=== PATIENT | male | born 1980 ===

== ENCOUNTER 2018-06-06 09:16 | Emergency (ER) | payer SELFPAY ==
[2018-06-06 09:37] VITALS: BP 106/63; PULSE 82; RESP 16; TEMP 98.6; O2SAT 100
--- NOTE | 2018-06-06 09:51 | C.PDOC ---
History Of Present Illness Patient transferred from [facility] for psychiatric admission. Patient had attempted suicide by taking 30 tablets of Gabapentin 100 mg. Patient has history of anxiety and depression. All transfer forms reviewed and medical chart copies. Patient to be admitted to [facility] service Time Seen by Provider: 06/06/18 09:31 Chief Complaint (Nursing): Psychiatric Evaluation History Per: Patient History/Exam Limitations: no limitations Suicide/Self Injury Attempted (Context): Ingestion Involuntary Hold By: None Additional History Per: EMS, Prior Records Past Medical History Reviewed: Historical Data, Nursing Documentation, Vital Signs Vital Signs: Last Vital Signs Temp 98.6 F 06/06/18 09:31 Pulse 82 06/06/18 09:31 Resp 16 06/06/18 09:31 BP 106/63 06/06/18 09:31 Pulse Ox 100 06/06/18 09:31 - Medical History PMH: HIV (As per pt) Denies: Diabetes, Hepatitis, HTN, Seizures, Sexually Transmitted Disease Family History: States: No Known Family Hx - Social History Hx Alcohol Use: Yes Hx Substance Use: Yes - Immunization History Hx Tetanus Toxoid Vaccination: No Hx Influenza Vaccination: No Hx Pneumococcal Vaccination: No Review Of Systems Except As Marked, All Systems Reviewed And Found Negative. Psych: Positive for: Depression, Suicidal ideation Physical Exam - Physical Exam Appears: Non-toxic, No Acute Distress Neck: Normal ROM Chest: Symmetrical Respiratory: No Accessory Muscle Use, Other (No respiratory distress) Neurological/Psych: Oriented x3, Normal Speech Gait: Steady Additional Physical Exam Comments: Exam limited to inspection ED Course And Treatment O2 Sat by Pulse Oximetry: 100 (RA) Pulse Ox Interpretation: Normal Medical Decision Making Medical Decision Making: Initial Plan: Patient transferred for psychiatric admission, already accepted to service. Progress/Updates: Crisis to speak to patient. 10:43 Patient was to be admitted. He spoke to bog worker and refused admission. Discussed the risks and benefits of refusing treatment, patient is choosing to sign out AMA. AMA (admission): The patient declines admission, and wishes to leave the Emergency Department. This action is against my medical advice to the patient and the decision was made with informed refusal. The patient was told that admission is necessary and a full explanation of the rationale was given. The risks of leaving were explained to the patient and include, but are not limited to, worsening of known or currently unknown conditions, permanent disability and from undiagnosed or untreated conditions The patient has the capacity to make this informed decision and understands the clinical situation and my explanation of the risks of leaving. The patient voluntarily accepts these risks, and a signed AMA form documenting our conversation was obtained. The patient was given the opportunity to ask questions and reconsider. The patient was encouraged to return to the Emergency Department at any time for further care. 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 - Scribe Statement The provider has reviewed the documentation as recorded by the Cale Kaplan All medical record entries made by the Benitaibomid were at my direction and personally dictated by me. I have reviewed the chart and agree that the record accurately reflects my personal performance of the history, physical exam, medical decision making, and the department course for this patient. I have also personally directed, reviewed, and agree with the discharge instructions and disposition.
== END 2018-06-06 10:42 | disposition left against medical advice (07) ==
LOC: C.ER 09:16 → C.5E 09:41 → UNDOADMIN 09:41 → C.ER 10:42
DX: F32.1 Major depressive disorder, single episode, moderate (principal)